=== PATIENT | female | born 1945 | race Caucasian/White ===

== ENCOUNTER 2020-11-24 10:38 | Emergency (ER) | payer MEDICARE, SELFPAY ==
[2020-11-24] VITALS (31 sets, daily range): BP systolic 152–189; BP diastolic 68–153; PULSE 68–96; RESP 14–27; TEMP 36.4; O2SAT 84–100
--- NOTE | ~2020-11-24 | US_ITS ---
EXAMINATION: US venous doppler [facility] DATE: 11/24/2020 12:24 INDICATION: Lower limb edema. TECHNIQUE: Grayscale ultrasound images without and with compression and Doppler ultrasound images of the bilateral lower extremity veins were obtained. COMPARISON: Ultrasound 08/31/2011 FINDINGS: The visualized portions of right common femoral vein, profunda (deep) femoral vein, femoral vein, pop liteal vein, peroneal veins, posterior tibial veins, and greater saphenous vein outflow are patent. The visualized portions of left common femoral vein, profunda femoral vein, femoral vein, popliteal v ein, peroneal veins, posterior tibial veins, and greater saphenous vein outflow are patent. IMPRESSION: 1. No deep venous thrombosis. Reviewed, dictated and finalized at location A. ICAL RESEARCH COORDINATOR
--- NOTE | ~2020-11-24 | XR_ITS ---
EXAMINATION: XR chest 2V DATE: 11/24/2020 11:33 INDICATION: Coarse breath, cough and bilateral lower limb edema TECHNIQUE: frontal and lateral views of the chest were obtained. COMPARISON: Chest radiograph dated 01/26/2009 FINDINGS: Mild eventration along the diaphragm on both the left and right. No focal airspace opacities, pulmona ry edema, pleural effusion or pneumothorax. Borderline heart size accounting for AP technique. Thorac ic kyphosis with moderate spondylosis. IMPRESSION: 1. Borderline heart size. No acute cardiopulmonary disease. Reviewed, dictated and finalized at location B. K OFF WORKER
--- NOTE | 2020-11-24 10:53 | ECG_ITS ---
Measurements Intervals [place] Rate: 90 P: 45 UT: 142 QRS: -7 QRSD: 99 T: 45 QT: 334 QTc: 410 Interpretive Statements SINUS RHYTHM DELAYED PRECORDIAL R/S TRANSITION VOLTAGE CRITERIA FOR LVH BASELINE ARTIFACT- I, II, III, AVL, AVF BORDERLINE ECG Electronically Signed On 11-24-2020 11:21:48 DIVISIONAL STOREKEEPER by Melvin Dang D.O.
--- NOTE | 2020-11-24 10:57 | ED.SOB ---
HPI - SOB/Dyspnea General Chief Complaint: Shortness of Breath/Dyspnea Stated Complaint: sob, wheezing Time Seen by Provider: 11/24/20 10:56 History of Present Illness HPI Narrative: 75 yo female with unknown medical history presents to the ED c/o cough. She reports that she has had a cough for several days. The cough is productive of minimal pink tinged sputum. This is associated with occasional SOB. She is concerned that she may have COVID-19. No known exposure. She also noted that she has swelling in the BLE. She reports that this is chronic and she is not sure if it is any worse. She has had cellulitis multiple times and is concerned that it is coming back due to mild pain and a small pustule on her left kwon. She reports that she was previously on medications, but has not taken any of them because she has been living in the hospital with her granddaughter for the past year and has not seen her PCP. I contacted her PCP. She has a h/o htn and recurrent cellulitis. He recommends starting lisinopril and augmentin. He believes that these have both worked for her in the past. He will follow-up with her as soon as she is able. Related Data Allergies Allergy/AdvReac Type Severity Reaction Status Date / Time codeine Allergy Unknown Verified 06/16/14 15:25 shellfish derived Allergy Unknown Verified 06/16/14 15:26 SHELLFISH Allergy Severe LOBSTER, Uncoded 08/16/14 18:30 CRAB LETS Shrimp Allergy Severe SHELLFISH Uncoded 08/16/14 18:30 CAUSE SEVERE HIVES AND SWELLING Review of Systems Review of Systems: All systems reviewed & are unremarkable except as noted in HPI and below Constitutional: Constitutional: Denies chills, Denies fever(s) and Denies weakness Eyes: Eyes: Reports no additional eye complaints ENT: Denies dizziness and Denies sore throat Cardiovascular: Cardiovascular: Denies chest pain Respiratory: Respiratory: Reports cough and Reports dyspnea Gastrointestinal: Gastrointestinal: Denies abdominal pain, Denies nausea and Denies vomiting Genitourinary: Genitourinary: Denies dysuria Neurologic: Denies dizziness and Denies weakness [facility] Past Medical History Medical History HTN (hypertension) Family History Family History Father Hypertension Malignant neoplasm of prostate Family history of diabetes mellitus in first degree relative Mother Family history of lung cancer Social History Social History Smoking status: Never smoker Second hand tobacco smoke exposure: Yes Alcohol intake: never Exam Const: General: no acute distress and alert Orientation/consciousness: patient oriented x3 HENMT: Other: Blue discoloration of face(chronic due to silver supplement) Neck: Neck: normal visual inspection Resp: Effort & Inspection: normal respiratory effort Auscultation: clear to auscultation bilaterally Cardio: Rate: regular rate Rhythm: regular rhythm GI: GI Palp: Yes Soft to palpation and No Tenderness to palpation present (GI) Skin: Other: Blue discoloration of head and BUE Mild skin breakdown around bilateral ankles. >1 cm pustule on left kwon Neuro: General: patient oriented x3, moves all extremities, no focal motor deficits and CN's II-XI intact bilaterally Speech: normal speech Gait exam (Neuro): Normal gait present Extrem: General: edema bilateral (mild) Course Vital Signs Vital signs: Vital Signs Temperature 36.4 C 11/24/20 11:06 Pulse Rate 90 11/24/20 11:06 Respiratory Rate 20 11/24/20 11:06 Blood Pressure 160/147 H 11/24/20 11:06 Pulse Oximetry 96 11/24/20 11:06 Temperature 36.4 C 11/24/20 11:06 Pulse Rate 89 11/24/20 14:46 Respiratory Rate 14 11/24/20 14:46 Blood Pressure 176/120 H 11/24/20 14:46 Pulse Oximetry 95 11/24/20 14:46 MDM - SOB/Dy
[2020-11-24 11:05] LABS: Basophils Absolute Auto 0.1 K/mm3 (0.0-0.1); Basophils Percent Auto 0.6 % (0.2-1.2); Eosinophils Absolute Auto 0.5 K/mm3 (0-0.3); Eosinophils Percent Auto 5.1 % (0-4.4); Hematocrit 44.9 % (37.0-47.0); Hemoglobin 14.2 g/dL (12.0-15.0); Immature Granulocyte Absolute 0.03 K/mm3 (0.00-0.031); Immature Granulocyte Percent A 0.3 % (0-0.5); Lymphocytes Absolute Auto 1.25 K/mm3 (0.9-3.2); Lymphocytes Percent Auto 13.8 % (18.3-44.2); Mean Corpuscular HGB Conc 31.6 g/dl (32-36); Mean Corpuscular Volume 91.8 fl (80-100); Mean Platelet Volume 8.4 fl (7.4-10.4); Monocytes Absolute Auto 0.6 K/mm3 (0.1-0.6); Monocytes Percent Auto 6.3 % (2.6-8.5); Neutrophils Absolute Auto 6.7 K/mm3 (1.3-6.7); Neutrophils Percent Auto 73.9 % (45.5-73.1); Platelet Count Result 252 k/mm3 (150-375); Red Blood Count 4.89 M/mm3 (4.2-5.4); Red Cell Distribution Width 13.7 % (11.5-14.5); White Blood Count 9.1 K/mm3 (4.5-10.0)
--- NOTE | 2020-11-24 11:11 | PC.NURSE ---
Dr Talamantes returned call and notified of pts ..
[2020-11-24 11:17] LABS: Anion Gap 4 mmol/L (8-16); Blood Urea Nitrogen 13 mg/dL (7-17); Calcium 8.7 mg/dL (8.4-10.2); Carbon Dioxide 30 mmol/L (22-30); Chloride 104 mmol/L (98-107); Estimated CRCL calculation 60 ml/min; Estimated Glomerular Filt Rate > 60; Glucose 165 mg/dL (65-105); Potassium 4.4 mmol/L (3.4-5.0); Sodium 138 mmol/L (137-145)
[2020-11-24 12:55] LABS: NT Pro B Type Natriuretic Pept 302 PG/ML (5-100)
[2020-11-24] MEDS: AMOXICILLIN/CLAVULANATE K 875-125 MG TAB 1 TABLET PO (13:54)
[2020-11-24] MEDS: CEPHALEXIN 500 MG CAPSULE PO (13:54)
[2020-11-24 22:27] LABS: SARS-CoV-2 RNA PCR Negative
== END 2020-11-24 14:59 | disposition home or self-care (01) ==
PROVIDERS: Emergency Provider Emergency Medicine
DX: I10 Essential (primary) hypertension (principal); L03.119 Cellulitis of unspecified part of limb; Z20.822 Contact with and (suspected) exposure to COVID-19; R06.02 Shortness of breath; R94.31 Abnormal electrocardiogram [ECG] [EKG]
CPT/HCPCS: 36415; 71046; 80048; 83880; 85025; 87070; 87147; 87186; 87205; 93005; 93970; 99284; A9270; C9803; U0003; U0005